=== PATIENT | female | born 2005 | race Caucasian/White ===

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

== ENCOUNTER 2024-05-27 20:11 | Emergency (ER) | payer BC, OTHER, SELFPAY ==
[2024-05-27 20:19] VITALS: BP 124/80
[2024-05-27 20:47] LABS: % Basophils 0.1 % (0-2); % Eosinophils 0.1 % (0-6); % Immature Granulocytes 0.5 % (0-0.5); % Lymphocytes 46.5 % (20.5-51.1); % Monocytes 6.3 % (1.7-9.3); % Neutrophils 46.5 % (42.2-75.2); Absolute Lymphocytes 3.9 10^3/uL (1.2-3.4); Absolute Monocytes 0.5 10^3/uL (0.1-0.6); Absolute Neutrophils 3.9 10^3/uL (1.4-6.5); Hematocrit 41.1 % (37.0-47.0); Hemoglobin 13.8 g/dL (12.0-16.0); Mean Corp Hgb Conc. 33.6 g/dL (33.0-37.0); Mean Corpuscular Hgb 29.8 pg (27.0-31.0); Mean Corpuscular Volume 88.8 fL (81.0-99.0); Mean Platelet Volume 10.5 fL (7.4-10.4); Nucleated Red Blood Cells % 0 %; Platelet Count 249 10^3/uL (130-400); Red Blood Cell Count 4.63 10^6/uL (4.20-5.40); Red Cell Dist. Width 12.1 % (11.5-14.5); White Blood Cell Count 8.4 10^3/uL (4.8-10.8)
[2024-05-27 21:03] LABS: ALT (SGPT) 49 U/L (0-35); AST (SGOT) 31 U/L (14-36); Albumin 4.5 g/dl (3.5-5.0); Alkaline Phosphatase 53 U/L (38-126); Blood Urea Nitrogen 16 mg/dl (7-17); Calcium 9.5 mg/dl (8.4-10.2); Carbon Dioxide 25 mmol/L (22-30); Chloride 102 mmol/L (98-107); Glucose 109 mg/dl (70-99); Sodium 138 mmol/L (135-145); Total Bilirubin 0.5 mg/dl (0.2-1.3); Total Protein 7.6 g/dl (6.3-8.2); eGFR > 60.00
--- NOTE | 2024-05-27 23:52 | ED.GENMED ---
History of Present Illness
<Marlon Gleason MD, Resident - Last Filed: 05/28/24 02:29>
General
Chief Complaint: Rectal Bleeding
Source: patient and family
Exam Limitations: none
Time Seen by Provider: 05/27/24 23:51
Nursing documentation reviewed up to this point in time: agreed with
Travel History
Have you traveled to any high risk areas for coronavirus over the past 14 days?: No
Have you had any contact with someone who has COVID-19?: No
Do you have any symptoms of coronavirus? Fever > 100 degrees, chills, cough, shortness of breath, sore throat, loss of taste or smell, muscle aches, or headache?: No
History of Present Illness
History of Present Illness:
This is a 19-year-old female with past medical history of terminal ileal Crohn's with stricture and perforation s/p ileocolectomy (05/2022) Dr. Sommer, she is followed by Dr. Lynn at [facility] gastroenterology, on [facility] who presented to the emergency
department with complaints of abdominal pain, black tarry stool that started 4 days ago. Patient reports that she had a sinus infection with bilateral ear fullnessl 8 days ago and was seen at an urgent care 5 days ago where she was prescribed a
Medrol pack and Augmentin. ED after starting the medication, she started having intermittent abdominal pain rated 7/10 in the mid epigastric and periumbilical regions. She has not identified any aggravating or alleviating factors, does not take
any pain medication regularly. She states that this feels like her normal Crohn's flare abdominal pain but is lasted more than usual. She also feels nauseous but has not vomited. She denies diarrhea and constipation. Denies chest pain, shortness
of breath, fever or chills. She reports compliance to her Crohn's medications and has not taken any new medications or other OTC supplements.
Past History
<Marlon Gleason MD, Resident - Last Filed: 05/28/24 02:29>
Past History
ED Past Medical History: None (Crohn's disease)
ED Past Surgical History: None
Social History
Tobacco: No 2nd hand smoke
Phy Exam
<Marlon Gleason MD, Resident - Last Filed: 05/28/24 02:29>
Physical Exam
Physical Exam:
GENERAL: Alert and oriented x 3, NAD. Afebrile
HEAD: NC/AT
OROPHARYNX: no exudate or ulcers.
EYE: pupils equal and reactive extraocular muscles
NECK: Supple, no significant adenopathy.
CARDIAC: Regular rate and rhythm without any obvious murmurs.
LUNGS: Normal breath sounds,normal-no rhonchi. Not bronchospastic.
ABDOMEN: Soft, epigastric and periumbilical tenderness, ND, no peritoneal signs.
NEUROLOGICAL: Alert and oriented x 3. No focal neurological deficit.
SKIN: Warm and dry, no rash or lesion, no discoloration, skin intact.
MUSCULOSKELETAL: Full range of motion of extremities.
LYMPHATIC:No lymph nodes on his neck or supraclavicular area.
PSYCH: Normal and appropriate interaction.
Pulmonary Exam
Pulmonary Exam: lungs clear, no respiratory distress and no wheezing
Gastrointestinal Exam
Gastrointestinal Exam: normal bowel sounds, non tender and soft
Course
<Marlon Gleason MD, Resident - Last Filed: 05/28/24 02:29>
Orders/Labs/Results
Orders:
Orders
05/27/24 20:34
CMP [Comprehensive Metabolic Panel] Urgent
Complete Blood Count/With Diff Urgent
HCG, Serum Qualitative Screen Urgent
Comment: ADD ON
05/28/24 00:02
Add On- LAB Urgent
Tests Added?: B-HCG
Abnormal Lab Results
05/27/24
20:34
MPV 10.5 H fL
(7.4-10.4)
Absolute Lymphs (auto) 3.9 H 10^3/uL
(1.2-3.4)
Glucose 109 H mg/dl
(70-99)
ALT 49 H U/L
(0-35)
05/27/24 20:34
05/27/24 20:34
Vital Signs
Initial and Last Documented VS:
Initial Vital Signs
Temp Pulse Resp BP Pulse Ox
98.1 F 78 18 124/80 98
05/27/24 20:19 05/27/24 20:19 05/27/24 20:19 05/27/24 20:19 05/27/24 20:19
Last Documented Vital Signs
Temp Pulse Resp BP Pulse Ox
98.3 F 68 16 111/70 99
05/28/24 00:48 05/28/24 00:48 05/28/24 00:48 05/28/24 00:48 05/28/24 00:48
<Tati Valdez, DO - Last Filed: 05/28/24 01:47>
Orders/Labs/Results
Orders:
Orders
05/27/24 20:34
CMP [Comprehensive Metabolic Panel] Urgent
Complete Blood Count/With Diff Urgent
HCG, Serum Qualitative Screen Urgent
Comment: ADD ON
05/28/24 00:02
Add On- LAB Urgent
Tests Added?: B-HCG
Abnormal Lab Results
05/27/24
20:34
MPV 10.5 H fL
(7.4-10.4)
Absolute Lymphs (auto) 3.9 H 10^3/uL
(1.2-3.4)
Glucose 109 H mg/dl
(70-99)
ALT 49 H U/L
(0-35)
05/27/24 20:34
02/01/25 20:34
Vital Signs
Initial and Last Documented VS:
Initial Vital Signs
Temp Pulse Resp BP Pulse Ox
98.1 F 78 18 124/80 98
05/27/24 20:19 05/27/24 20:19 05/27/24 20:19 05/27/24 20:19 05/27/24 20:19
Last Documented Vital Signs
Temp Pulse Resp BP Pulse Ox
98.3 F 68 16 111/70 99
05/28/24 00:48 05/28/24 00:48 05/28/24 00:48 05/28/24 00:48 05/28/24 00:48
<Marlon Gleason MD, Resident - Last Filed: 05/28/24 02:29>
MDM/Problems Addressed
MDM/Problems Addressed:
19-year-old female with PMH of Crohn's ileitis on Humira who came to the emergency department with 4-day history of midepigastric, periumbilical abdominal pain and melena. She does not take any regular pain medication and is regular with her
famotidine. She denies taking Pepto-Bismol recently, she denies BRBPR. Differential diagnoses include upper GI bleed from gastritis, stress-induced ulcer, H. pylori infection. It is unlikely that she has perforated again given intermittent nature
of her abdominal pain has no indication for imaging at this point. Crohn's disease exacerbation also highly unlikely given benign abdominal exam and that she has not had any recent diarrhea, fever, chills. Her labs are reassuring with hemoglobin
of 13.8, for this upper GI bleed less likely. Will get FOBT and treat accordingly.
Chronic conditions affecting care: Other (Crohn's disease)
<Marlon Gleason MD, Resident - Last Filed: 05/28/24 02:29>
*Critical Care Note
Total Time (30-74mins, 75-104mins- exclusive of procedures): Not Applicable
<Marlon Gleason MD, Resident - Last Filed: 05/28/24 02:29>
Update Note
Update Note:
Patient reports feeling better. Her rectal exam was negative. Patient is medically stable for discharge. Advised to discontinue Augmentin and steroid and follow-up with her primary care physician and bricklayer's assistant.
ED Attending Note
<Marlon Gleason MD, Resident - Last Filed: 05/28/24 02:29>
-
Portions of this chart may have been created with voice recognition software.� Occasional wrong word or��sound alike� substitutions may have occurred due to the inherent limitations of voice recognition software.
<Tati Valdez DO - Last Filed: 05/28/24 01:47>
ED Attending Note
Patient seen and examined by attending physician: Yes
I performed a history and physical exam of patient and discussed management with resident, I reviewed resident's note and agree with documented findings and plan of care.: Yes
ED Attending Note:
This is a 19-year-old female with history of Crohn's disease diagnosed at age 16. Crohn's disease complicated with stricture at ileocecal valve and she suffered a bowel perforation at ileocecal valve requiring urgent surgery May 2022. She
follows with GI at [facility], maintained on Humira every 10 days. She is also maintained on Pepcid and takes Bentyl for as needed abdominal cramps.
She suffered a URI last week primarily nasal congestion, bilateral ear fullness, no fever, and was evaluated at urgent care on Wednesday, diagnosed with acute sinusitis and placed on a course of Augmentin as well as Medrol Dosepak. The following day,
Wednesday she developed epigastric abdominal discomfort, intermittent since then accompanied with soft black stools.
She admits to feeling somewhat lightheaded, intermittent nausea but has had no vomiting. No back pain. Denies risk of , last menstrual period ended 3 days ago.
She admits that current abdominal pain symptoms feel quite different from previous episodes of Crohn's flare.
Review of records note ED visit September 2023 with complaints of several day history of bloody diarrhea and crampy abdominal pain. Labs were unremarkable at that time and CT of the abdomen pelvis was unremarkable as well.
She also admits that current symptoms are quite different from abdominal pain she experienced May 2022 as well as abdominal pain September 2023.
19-year-old female appears her stated age, bright and alert, pleasant, appears in no acute distress. Mother is accompanying. Vital signs within normal limits.
HEENT: TMs are clear bilaterally. Nares are patent without rhinorrhea. Posterior pharynx is clear.
Abdomen: Soft, nondistended, minimal tenderness epigastric region with deep palpation only, no rebound or guarding, no rigidity. No palpable masses. Rectal exam reveals no stool per vault, heme-negative.
Concern for hemorrhagic gastritis as cause for black stools, other consideration is exacerbation of Crohn's however reassuring that she has not had diarrhea, no fever, abdominal exam is rather benign.
Labs are all within normal limits. Hemoglobin of 13.8. Not consistent with a GI bleed ongoing for 4 days. It is also reassuring that rectal exam is heme-negative.
At this point unclear as to cause for black stools but at this point does not appear to be upper GI bleed in nature.
With reassuring labs, reassuring vital signs and reassuring abdominal exam, at this point no indication for imaging.
There is no evidence of sinusitis on exam, no evidence of otitis media, and I have discussed with patient and mom that most episodes of acute sinusitis are viral in nature. Her intermittent epigastric abdominal discomfort may be related to
antibiotic and/or Medrol Dosepak and recommend she discontinue these.
Recommend continuing Pepcid as already prescribed. Continue Bentyl as needed for abdominal cramps.
Prompt follow-up with bricklayer's assistant for recheck.
Return precautions discussed.
Discharge Plan
Departure
Patient Disposition: Home (Routine Discharge)
Date of Disposition: 05/28/24
Time of Disposition: 01:17
Patient with high blood pressure during this ER visit?: No
Condition: Good
Discharge Problem:
Abdominal pain, epigastric, Stool color black
Instructions: Abdominal Pain
Prescriptions:
No Action
drospirenone-ethinyl estradiol 3-0.02 mg tablet
1 tab PO DAILY
Visbiome 112.5 billion cell Capsule
1 cap PO DAILY
One Daily For Women 18-0.4 mg Tablet
2 tab PO DAILY
famotidine 20 mg Tablet
20 mg PO DAILY
dicyclomine 20 mg Tablet
20 mg PO DAILY
Humira Pen 40 mg/0.8 mL Pen Injector Kit
40 mg SC .[id number]
Activity Restrictions/Additional Instructions:
Follow-up with your bricklayer's assistant for recheck.
There is no evidence of sinusitis nor otitis media on exam. I want you to discontinue Augmentin as well as Medrol.
Interventions
Interventions:
*Risk Screen - Suicide Last Done: 05/27/24 20:19
*General Assessment Last Done: 05/28/24 00:41
*Neglect/Abuse Screening Last Done: 05/27/24 20:19
*ED COVID-19 Vaccine History Last Done: 05/28/24 00:41
*Nursing Disposition Last Done: 05/28/24 01:31
ED- Pulmonary Assessment Last Done: 05/28/24 00:52
Discharge Date and Time
Discharge Date/Time: 05/28/24 01:31
Print Language: GREENLAND[place]
[2024-05-28 00:46] VITALS: BMI 26.9
[2024-05-28 00:48] VITALS: BP 111/70
[2024-05-28 00:53] LABS: HCG, Serum Qualitative Screen Negative
== END 2024-05-28 01:31 | disposition home or self-care (01) ==
LOC: EMR 20:11
PROVIDERS: Student in an Organized Health Care Education/Training Program; EMERGENCY PHYSICIAN Emergency Medicine; FAMILY PHYSICIAN Pediatrics; OTHER PHYSICIAN Nurse Practitioner Pediatrics
DX: R10.13 Epigastric pain (principal); R19.5 Other fecal abnormalities; K50.90 Crohn's disease, unspecified, without complications
CPT/HCPCS: 99283; 80053; 84703; 85025